=== PATIENT | female | born 1965 | race Caucasian/White ===

== ENCOUNTER 2016-07-13 23:07 | Emergency (ER) | payer OTHER ==
[~2016-07-13] VITALS: Ht 167.6 cm; Wt 65.8 kg
--- NOTE | 2016-07-13 23:15 | NUR ---
To bed 6 a 51 yo female bibra with c/o right flank pain, constant sharp pain. Patient is aaox4, ambulatory with steady gait, reports she has history of kidney stones. Afebrile. Gowned. Initiated comfort measures. Dr Allen at bedside for eval.
--- NOTE | 2016-07-13 23:41 | NUR ---
xr at bedside.
[2016-07-13 23:48] LABS: APPEARANCE,URINE CLEAR (CLEAR); BILIRUBIN,URINE NEGATIVE (NEGATIVE); BLOOD, URINE 1+ Ery/uL (NEGATIVE); COLOR,URINE YELLOW (YELLOW); KETONES,URINE NEGATIVE (NEGATIVE); LEUKOCYTE ESTERASE ,URINE NEGATIVE (NEGATIVE); NITRITE, URINE NEGATIVE (NEGATIVE); PROTEIN,URINE TRACE mg/dl (NEGATIVE); UGLUCOSE NEGATIVE (NEGATIVE); UROBILINOGEN,URINE 0.2 EU/dL (0.2)
[2016-07-14 00:02] LABS: ADD URINE CULTURE NO; BACTERIA,URINE Few /HPF (None Seen); WBC,URINE 0-2 /HPF (0-3)
[2016-07-14 00:03] LABS: SQUAMOUS EPITHELIAL CELL,UR Few /HPF (None Seen)
[2016-07-14] MEDS ORDERED: HYDROCODONE/APAP 10/325MG 1 EA TABLET ONE (00:15)
[2016-07-14] MEDS ORDERED: KETOROLAC TROMETHAMINE INJ 30 MG/ML VIAL ONE (00:15)
[2016-07-14] MEDS ORDERED: KETOROLAC TROMETHAMINE INJ 30 MG/ML VIAL IM ONE (00:30)
[2016-07-14] MEDS ORDERED: HYDROCODONE/APAP 10/325MG 1 EA TABLET PO ONE (00:30)
[2016-07-14] MEDS ORDERED: TAMSULOSIN 0.4 MG CAP.SR.24H PO ONE (01:00)
[2016-07-14] MEDS ORDERED: TAMSULOSIN 0.4 MG CAP.SR.24H ONE (01:02)
--- NOTE | 2016-07-14 01:45 | NUR ---
Endorsed care to lapd officers. Written and verbal after care instructions given. Patient verbalizes understanding of instruction. Patient is ambulatory with a steady gait, no futher complaints.
[2016-07-14 01:46] VITALS: BP 115/60
== END 2016-07-14 01:47 | disposition home or self-care (01) ==
LOC: ER 23:10
DX: N20.0 Calculus of kidney (principal); Z88.2 Allergy status to sulfonamides
CPT/HCPCS: 74000; 81001; 96372; 99285; A4606; J1885; Z7610; 81000-TC

== ENCOUNTER 2017-06-16 13:22 | Emergency (ER) | payer MEDICAID, OTHER ==
[~2017-06-16] VITALS: Ht 167.6 cm; Wt 65.8 kg
--- NOTE | 2017-06-16 13:32 | NUR ---
ARTUR FROM HOME DT VAGINAL BLEEDING X 5 DAYS. PER PATIENT SHE HAS BEEN CHANGING PADS Q2H- PT CO DIZZINESS. PATIENT IS AFEBRILE. PT WITH HX OF OVARIN CYST. VSS
[2017-06-16] MEDS ORDERED: KETOROLAC TROMETHAMINE INJ 30 MG/ML VIAL ONE (13:37)
[2017-06-16 13:46] LABS: BASOPHILS % (AUTO) 0.5 % (0.0-2.0); EOSINOPHILS % (AUTO) 1.9 % (0.0-6.0); HEMATOCRIT 41 % (33-45); HEMOGLOBIN 13.9 g/dL (11.5-14.8); LYMPHOCYTES # (AUTO) 1.1 /CMM (0.8-4.8); LYMPHOCYTES % (AUTO) 14.2 % (20.0-44.0); MEAN CORPUSCULAR HGB CONC 34 g/dl (31.0-36.0); MEAN CORPUSCULAR VOLUME 85 fL (82-100); MONOCYTES # (AUTO) 0.4 /CMM (0.1-1.30); MONOCYTES % (AUTO) 5.6 % (2.0-12.0); NEUTROPHILS # (AUTO) 6.3 /CMM (1.8-8.9); NEUTROPHILS % (AUTO) 77.8 % (43.0-81.0); PLATELET COUNT (AUTO) 285 /CMM (150-450); RDW COEFFICIENT OF VARIATION 13.4 (11.5-15.0)
[2017-06-16 13:55] LABS: CALCIUM, SERUM 8.8 mg/dL (8.5-10.1); CREATININE 0.9 mg/dL (0.6-1.3); POTASSIUM 3.9 mmol/L (3.5-5.1)
[2017-06-16] MEDS ORDERED: HYDROMORPHONE INJ 2 MG/ML DISP.SYRIN ONE (13:57)
[2017-06-16] MEDS ORDERED: ONDANSETRON HCL/PF 4 MG/2 ML VIAL ONE (13:57)
[2017-06-16] MEDS ORDERED: IV NS 0.9% 1,000 ML BAG IV ONE (14:00)
[2017-06-16] MEDS ORDERED: HYDROMORPHONE 1 MG/1 ML DISP.SYRIN IV ONE (14:00)
[2017-06-16] MEDS ORDERED: KETOROLAC TROMETHAMINE INJ 30 MG/ML VIAL IV ONE (14:00)
[2017-06-16] MEDS ORDERED: ONDANSETRON HCL/PF 4 MG/2 ML VIAL IV ONE (14:00)
[2017-06-16 14:14] LABS: APPEARANCE,URINE Turbid (CLEAR); BILIRUBIN,URINE MODERATE (NEGATIVE); BLOOD, URINE Large Ery/uL (NEGATIVE); COLOR,URINE Red (YELLOW); KETONES,URINE 15 (NEGATIVE); LEUKOCYTE ESTERASE ,URINE Large (NEGATIVE); NITRITE, URINE Positive (NEGATIVE); PH,URINE 6.5 (5.0-8.0); PROTEIN,URINE >=300 mg/dl (NEGATIVE); UGLUCOSE Negative (NEGATIVE)
[2017-06-16 14:20] LABS: RBC,URINE TOO NUMEROUS TO COUN /HPF (0-2)
[2017-06-16 14:23] LABS: BACTERIA,URINE None seen /HPF (None Seen); SQUAMOUS EPITHELIAL CELL,UR Few /HPF (None Seen)
[2017-06-16] MEDS ORDERED: medroxyPROGESTERone ACET 5 MG TABLET PO ONE (15:00)
[2017-06-16 15:07] VITALS: BP 138/80
== END 2017-06-16 15:09 | disposition home or self-care (01) ==
LOC: ER 13:24
DX: N93.8 Other specified abnormal uterine and vaginal bleeding (principal); N39.0 Urinary tract infection, site not specified; N95.0 Postmenopausal bleeding; Z87.442 Personal history of urinary calculi; Z88.2 Allergy status to sulfonamides
CPT/HCPCS: 36415; 80048; 81001; 84703; 85025; 87086; 96361; 96374 ×2; 96375; 99284; A4606; A6403; J1170; J1885; J2405; J7030; Z7610; 81000-TC

== ENCOUNTER 2017-07-05 02:27 | Emergency (ER) | payer MEDICAID ==
[~2017-07-05] VITALS: Ht 167.6 cm; Wt 68.0 kg
--- NOTE | 2017-07-05 02:40 | NUR ---
52 YO FEMALE BB RA FROM HOME. PATIENT IS ALERT AND ORIENTED X 3, C/O LEFT FLANK/ ABD PAIN. PATIENT ASSISTED TO ER BED, SKIN WARM AND DRY, RESP EVEN AND UNLABORED. AWAITING ORDERS FROM PROVIDER, WILL CONTINUE TO MONITOR
[2017-07-05] MEDS ORDERED: ONDANSETRON HCL/PF 4 MG/2 ML VIAL ONE (02:48)
[2017-07-05] MEDS ORDERED: MORPHINE SULFATE INJ 4 MG/ML DISP.SYRIN ONE (02:48)
--- NOTE | 2017-07-05 02:54 | NUR ---
PATIENT TRANSPORTED TO CT VIA GURNEY BY RADIOLOGY TEAM
[2017-07-05] MEDS ORDERED: MORPHINE SULFATE INJ 2 MG/ML DISP.SYRIN IV ONE (03:00)
[2017-07-05] MEDS ORDERED: IV NS 0.9% 1,000 ML BAG IV ONE (03:00)
[2017-07-05] MEDS ORDERED: ONDANSETRON HCL/PF 4 MG/2 ML VIAL IVP ONE (03:00)
[2017-07-05 03:34] LABS: BASOPHILS % (AUTO) 0.1 % (0.0-2.0); EOSINOPHILS % (AUTO) 1.4 % (0.0-6.0); HEMATOCRIT 36 % (33-45); HEMOGLOBIN 12.3 g/dL (11.5-14.8); LYMPHOCYTES # (AUTO) 0.7 /CMM (0.8-4.8); LYMPHOCYTES % (AUTO) 7.1 % (20.0-44.0); MEAN CORPUSCULAR HGB CONC 34 g/dl (31.0-36.0); MEAN CORPUSCULAR VOLUME 86 fL (82-100); MONOCYTES # (AUTO) 0.8 /CMM (0.1-1.30); MONOCYTES % (AUTO) 8.4 % (2.0-12.0); NEUTROPHILS # (AUTO) 7.9 /CMM (1.8-8.9); PLATELET COUNT (AUTO) 211 /CMM (150-450); RDW COEFFICIENT OF VARIATION 13.8 (11.5-15.0); RED BLOOD CELL COUNT(AUTO) 4.17 MIL/uL (4.0-5.2); WHITE BLOOD COUNT (AUTO) 9.6 K/uL (4.3-11.0)
[2017-07-05 03:42] LABS: BILIRUBIN,URINE NEGATIVE (NEGATIVE); BLOOD, URINE NEGATIVE Ery/uL (NEGATIVE); COLOR,URINE YELLOW (YELLOW); KETONES,URINE 1+ (NEGATIVE); LEUKOCYTE ESTERASE ,URINE NEGATIVE (NEGATIVE); NITRITE, URINE NEGATIVE (NEGATIVE); PH,URINE 6.5 (5.0-8.0); PROTEIN,URINE NEGATIVE (NEGATIVE); UGLUCOSE NEGATIVE (NEGATIVE); UROBILINOGEN,URINE 0.2 EU/dL (0.2)
[2017-07-05 03:45] LABS: APPEARANCE,URINE CLEAR (CLEAR); BACTERIA,URINE Few /HPF (None Seen); RBC,URINE 0-2 /HPF (0-2); SQUAMOUS EPITHELIAL CELL,UR Moderate /HPF (None Seen); WBC,URINE NONE SEEN /HPF (0-3)
[2017-07-05 03:46] LABS: CALCIUM, SERUM 8.8 mg/dL (8.5-10.1); CREATININE 1.4 mg/dL (0.6-1.3); POTASSIUM 3.9 mmol/L (3.5-5.1)
[2017-07-05 03:57] LABS: ALBUMIN 3.4 g/dL (3.4-5.0); BILIRUBIN,DIRECT 0.1 mg/dL (0.0-0.2); BILIRUBIN,TOTAL 0.6 mg/dL (0.2-1.0); TOTAL PROTEIN, SERUM 6.9 g/dL (6.4-8.2)
[2017-07-05] MEDS ORDERED: KETOROLAC TROMETHAMINE INJ 30 MG/ML VIAL ONE (04:18)
[2017-07-05] MEDS ORDERED: KETOROLAC TROMETHAMINE INJ 30 MG/ML VIAL IV ONE (04:30)
[2017-07-05 04:47] VITALS: BP 122/79
--- NOTE | 2017-07-05 04:47 | NUR ---
Patient discharged to home in stable condition. Written and verbal after care instructions given. Patient verbalizes understanding of instruction.IV removed. Catheter intact and site benign. Pressure and 4x4 applied to site. No bleeding noted. PT ambulatory with a steady gait VITAL SIGNS WITHIN NORMAL LIMITS.
== END 2017-07-05 04:48 | disposition home or self-care (01) ==
LOC: ER 02:33
DX: N20.0 Calculus of kidney (principal); N83.209 Unspecified ovarian cyst, unspecified side; Z88.2 Allergy status to sulfonamides
CPT/HCPCS: 36415; 80048-TC; 80076-TC; 81000-TC; 83690-TC; 85025-TC; A4606; J1885; J2270; J2405; Z7610

== ENCOUNTER 2017-07-19 07:22 | Emergency (ER) | payer MEDICAID ==
[~2017-07-19] VITALS: Ht 167.6 cm; Wt 68.0 kg
--- NOTE | 2017-07-19 07:25 | NUR ---
bibra 89 c/o LLQ abdominal pain radiates to left lower back. hx of kidney. Stating 10/10 pain, crying and restless. a/ox 4. breathing even and unlabored. no sob, vitals stable. safety and comfort measures in place. awaiting md orders.
[2017-07-19] MEDS ORDERED: MORPHINE SULFATE INJ 2 MG/ML DISP.SYRIN IV ONE (07:30)
[2017-07-19] MEDS ORDERED: ONDANSETRON HCL/PF 4 MG/2 ML VIAL IVP ONE (07:30)
[2017-07-19] MEDS ORDERED: IV NS 0.9% 1,000 ML BAG IV ONE (07:30)
--- NOTE | 2017-07-19 07:40 | NUR ---
new iv started on lac, 18g. blood drawn and sent to lab.
--- NOTE | 2017-07-19 07:41 | NUR ---
urine obtained and sent to lab.
[2017-07-19] MEDS ORDERED: MORPHINE SULFATE INJ 4 MG/ML DISP.SYRIN ONE (07:45)
[2017-07-19] MEDS ORDERED: ONDANSETRON HCL/PF 4 MG/2 ML VIAL ONE (07:45)
[2017-07-19 07:46] LABS: BASOPHILS # (AUTO) 0.1 /CMM (0.0-0.2); BASOPHILS % (AUTO) 0.8 % (0.0-2.0); EOSINOPHILS % (AUTO) 2.6 % (0.0-6.0); HEMATOCRIT 39 % (33-45); HEMOGLOBIN 13.4 g/dL (11.5-14.8); LYMPHOCYTES # (AUTO) 1.8 /CMM (0.8-4.8); LYMPHOCYTES % (AUTO) 23.2 % (20.0-44.0); MEAN CORPUSCULAR HGB CONC 34 g/dl (31.0-36.0); MEAN CORPUSCULAR VOLUME 85 fL (82-100); MONOCYTES # (AUTO) 0.7 /CMM (0.1-1.30); MONOCYTES % (AUTO) 8.5 % (2.0-12.0); NEUTROPHILS # (AUTO) 5.1 /CMM (1.8-8.9); NEUTROPHILS % (AUTO) 64.9 % (43.0-81.0); PLATELET COUNT (AUTO) 374 /CMM (150-450); RDW COEFFICIENT OF VARIATION 13.6 (11.5-15.0); WHITE BLOOD COUNT (AUTO) 7.9 K/uL (4.3-11.0)
[2017-07-19 07:49] LABS: APPEARANCE,URINE CLOUDY (CLEAR); BILIRUBIN,URINE NEGATIVE (NEGATIVE); BLOOD, URINE 3+ Ery/uL (NEGATIVE); COLOR,URINE YELLOW (YELLOW); KETONES,URINE NEGATIVE (NEGATIVE); LEUKOCYTE ESTERASE ,URINE NEGATIVE (NEGATIVE); NITRITE, URINE NEGATIVE (NEGATIVE); PH,URINE 7.5 (5.0-8.0); PROTEIN,URINE TRACE mg/dl (NEGATIVE); UGLUCOSE NEGATIVE (NEGATIVE); UROBILINOGEN,URINE 0.2 EU/dL (0.2)
[2017-07-19 07:53] LABS: BACTERIA,URINE Rare /HPF (None Seen); RBC,URINE TOO NUMEROUS TO COUN /HPF (0-2); SQUAMOUS EPITHELIAL CELL,UR Few /HPF (None Seen); WBC,URINE 0-2 /HPF (0-3)
[2017-07-19] MEDS ORDERED: HYDROMORPHONE 1 MG/1 ML DISP.SYRIN IV ONE (08:00)
[2017-07-19 08:02] LABS: CALCIUM, SERUM 8.7 mg/dL (8.5-10.1); CREATININE 0.9 mg/dL (0.6-1.3); POTASSIUM 4.1 mmol/L (3.5-5.1)
[2017-07-19 08:04] LABS: ALBUMIN 3.9 g/dL (3.4-5.0); BILIRUBIN,DIRECT 0.1 mg/dL (0.0-0.2); BILIRUBIN,TOTAL 0.3 mg/dL (0.2-1.0); TOTAL PROTEIN, SERUM 7.4 g/dL (6.4-8.2)
[2017-07-19] MEDS ORDERED: HYDROMORPHONE INJ 0.5 MG/0.5 ML SYRINGE ONE (08:06)
[2017-07-19] MEDS ORDERED: TAMSULOSIN 0.4 MG CAP.SR.24H ONE (09:26)
[2017-07-19] MEDS ORDERED: TAMSULOSIN 0.4 MG CAP.SR.24H PO ONE (09:30)
--- NOTE | 2017-07-19 09:53 | NUR ---
IV removed. Catheter intact and site benign. Pressure and 4x4 applied to site. No bleeding noted. Patient discharged to home in stable condition. Written and verbal after care instructions given. Patient verbalizes understanding of instruction.
[2017-07-19 09:55] VITALS: BP 135/66
== END 2017-07-19 09:55 | disposition home or self-care (01) ==
LOC: ER 07:24
DX: N20.0 Calculus of kidney (principal); N23 Unspecified renal colic; N83.202 Unspecified ovarian cyst, left side; Z88.2 Allergy status to sulfonamides
CPT/HCPCS: 36415; 80048-TC; 80076-TC; 81000-TC; 83690-TC; 85025-TC; A4606; J2270; J2405; J7030; Z7610

== ENCOUNTER 2017-07-22 15:17 | Emergency (ER) | payer MEDICAID ==
[~2017-07-22] VITALS: Ht 167.6 cm; Wt 68.0 kg
--- NOTE | 2017-07-22 15:54 | NUR ---
A/OX4. NAD C/O L FLANK PAIN HX OF KIDNEY STONE. WILL CONT TO MONITOR
[2017-07-22 16:15] LABS: BASOPHILS # (AUTO) 0.1 /CMM (0.0-0.2); EOSINOPHILS % (AUTO) 3.9 % (0.0-6.0); HEMATOCRIT 37 % (33-45); HEMOGLOBIN 13.1 g/dL (11.5-14.8); LYMPHOCYTES # (AUTO) 1.6 /CMM (0.8-4.8); LYMPHOCYTES % (AUTO) 25.9 % (20.0-44.0); MEAN CORPUSCULAR HGB CONC 35 g/dl (31.0-36.0); MEAN CORPUSCULAR VOLUME 85 fL (82-100); MONOCYTES # (AUTO) 0.3 /CMM (0.1-1.30); NEUTROPHILS # (AUTO) 3.9 /CMM (1.8-8.9); NEUTROPHILS % (AUTO) 64.2 % (43.0-81.0); PLATELET COUNT (AUTO) 342 /CMM (150-450); RDW COEFFICIENT OF VARIATION 12.6 (11.5-15.0); RED BLOOD CELL COUNT(AUTO) 4.41 MIL/uL (4.0-5.2); WHITE BLOOD COUNT (AUTO) 6.1 K/uL (4.3-11.0)
[2017-07-22] MEDS ORDERED: HYDROMORPHONE INJ 0.5 MG/0.5 ML SYRINGE ONE (16:23)
[2017-07-22] MEDS ORDERED: ONDANSETRON HCL/PF 4 MG/2 ML VIAL ONE (16:23)
[2017-07-22] MEDS ORDERED: KETOROLAC TROMETHAMINE 15 MG/ML VIAL ONE (16:23)
[2017-07-22] MEDS: ONDANSETRON HCL/PF 4 MG/2 ML VIAL IVP ONE (16:25)
[2017-07-22] MEDS: IV NS 0.9% 1,000 ML BAG IV ONE (16:25)
[2017-07-22] MEDS: KETOROLAC TROMETHAMINE INJ 30 MG/ML VIAL IV ONE (16:25)
[2017-07-22] MEDS: HYDROMORPHONE INJ 2 MG/ML DISP.SYRIN IV ONE (16:25)
[2017-07-22 16:27] LABS: CALCIUM, SERUM 8.3 mg/dL (8.5-10.1); CREATININE 0.9 mg/dL (0.6-1.3); POTASSIUM 3.8 mmol/L (3.5-5.1)
[2017-07-22 17:10] LABS: APPEARANCE,URINE Clear (CLEAR); BILIRUBIN,URINE Negative (NEGATIVE); BLOOD, URINE Trace-intact Ery/uL (NEGATIVE); COLOR,URINE Yellow (YELLOW); KETONES,URINE Negative (NEGATIVE); LEUKOCYTE ESTERASE ,URINE Negative (NEGATIVE); NITRITE, URINE Negative (NEGATIVE); PH,URINE 6.5 (5.0-8.0); PROTEIN,URINE Negative (NEGATIVE); UGLUCOSE Negative (NEGATIVE); UROBILINOGEN,URINE 0.2 EU/dL (0.2)
[2017-07-22 17:27] LABS: BACTERIA,URINE Rare /HPF (None Seen); RBC,URINE 0-2 /HPF (0-2); SQUAMOUS EPITHELIAL CELL,UR Few /HPF (None Seen); WBC,URINE 0-2 /HPF (0-3)
[2017-07-22] MEDS ORDERED: HYDROMORPHONE INJ 2 MG/ML DISP.SYRIN ONE (17:46)
[2017-07-22] MEDS: TAMSULOSIN 0.4 MG CAP.SR.24H PO ONE (17:47)
[2017-07-22] MEDS ORDERED: TAMSULOSIN 0.4 MG CAP.SR.24H ONE (17:47)
[2017-07-22] MEDS: HYDROMORPHONE 1 MG/1 ML DISP.SYRIN IV ONE (17:48)
--- NOTE | 2017-07-22 18:18 | NUR ---
CALLED DR OLVERA, WAS PAGED.
--- NOTE | 2017-07-22 19:12 | NUR ---
IV removed. Catheter intact and site benign. Pressure and 4x4 applied to site. No bleeding noted.Patient discharged to home in stable condition. Written and verbal after care instructions given. Patient verbalizes understanding of instruction.
[2017-07-22 19:15] VITALS: BP 138/85
== END 2017-07-22 19:15 | disposition home or self-care (01) ==
LOC: ER 15:21
DX: N23 Unspecified renal colic (principal); N13.39 Other hydronephrosis; Z87.442 Personal history of urinary calculi; N83.209 Unspecified ovarian cyst, unspecified side; Z88.2 Allergy status to sulfonamides
CPT/HCPCS: 36415; 76770-TC; 80048-TC; 81000-TC; 85025-TC; 87086-TC; A4606; J1170; J1885; J2405; Z7610

== ENCOUNTER 2017-08-09 19:54 | Emergency (ER) | payer MEDICAID ==
[~2017-08-09] VITALS: Ht 170.2 cm; Wt 68.0 kg
--- NOTE | 2017-08-09 20:26 | NUR ---
PT AMBULATORY TO ER BED 10. BIB SELF C/O R FLANK PAIN WITH STRONG ODOR AND URINARY LEAKING X 1 MONTH. PT PLACED IN GOWN AND ON CONTACT LENS TECHNICIAN. VSS/RESP EVEN UNLABORED/NAD NOTED/SKIN WARM AND DRY/DENIES N-V-D/AOX4. AWAITING MD HAYWARD.
--- NOTE | 2017-08-09 20:28 | NUR ---
URINE SPECIMEN OBTAINED AND SENT TO THE LAB.
--- NOTE | 2017-08-09 20:28 | NUR ---
AT BEDSIDE FOR EVAL.
[2017-08-09] MEDS ORDERED: ONDANSETRON HCL/PF 4 MG/2 ML VIAL IVP ONE (20:30)
[2017-08-09] MEDS ORDERED: HYDROMORPHONE INJ 2 MG/ML DISP.SYRIN IV ONE ×2 (20:30→22:00)
[2017-08-09] MEDS ORDERED: IV NS 0.9% 1,000 ML BAG IV ONE (20:30)
[2017-08-09] MEDS ORDERED: ONDANSETRON HCL/PF 4 MG/2 ML VIAL ONE (20:39)
[2017-08-09] MEDS ORDERED: HYDROMORPHONE INJ 2 MG/ML DISP.SYRIN ONE ×2 (20:39→21:31)
--- NOTE | 2017-08-09 20:40 | NUR ---
20G IV TO R AC X 1 ATTEMPT USING ASEPTIC TECH, BLOOD HANDED OVER TO THE LAB AT THE BEDSIDE. IV FLUSHES EASILY WITH NS, NO S/S INFILTRATION NOTED AT THIS TIME.
[2017-08-09 20:43] LABS: BASOPHILS # (AUTO) 0.1 /CMM (0.0-0.2); BASOPHILS % (AUTO) 0.7 % (0.0-2.0); EOSINOPHILS % (AUTO) 3.4 % (0.0-6.0); HEMATOCRIT 40 % (33-45); HEMOGLOBIN 13.7 g/dL (11.5-14.8); LYMPHOCYTES # (AUTO) 1.9 /CMM (0.8-4.8); LYMPHOCYTES % (AUTO) 23.4 % (20.0-44.0); MEAN CORPUSCULAR HGB CONC 35 g/dl (31.0-36.0); MEAN CORPUSCULAR VOLUME 86 fL (82-100); MONOCYTES # (AUTO) 0.4 /CMM (0.1-1.30); MONOCYTES % (AUTO) 5.4 % (2.0-12.0); NEUTROPHILS # (AUTO) 5.4 /CMM (1.8-8.9); NEUTROPHILS % (AUTO) 67.1 % (43.0-81.0); PLATELET COUNT (AUTO) 297 /CMM (150-450); RDW COEFFICIENT OF VARIATION 13.6 (11.5-15.0); WHITE BLOOD COUNT (AUTO) 8.1 K/uL (4.3-11.0)
[2017-08-09 20:44] LABS: APPEARANCE,URINE Clear (CLEAR); BILIRUBIN,URINE Negative (NEGATIVE); BLOOD, URINE Trace-intact Ery/uL (NEGATIVE); COLOR,URINE Yellow (YELLOW); KETONES,URINE Trace (NEGATIVE); LEUKOCYTE ESTERASE ,URINE Negative (NEGATIVE); NITRITE, URINE Negative (NEGATIVE); PROTEIN,URINE Negative (NEGATIVE); UGLUCOSE Negative (NEGATIVE); UROBILINOGEN,URINE 0.2 EU/dL (0.2)
--- NOTE | 2017-08-09 20:45 | NUR ---
MEDICATED PT ORDERED
[2017-08-09 20:53] LABS: CALCIUM, SERUM 8.5 mg/dL (8.5-10.1); CREATININE 0.7 mg/dL (0.6-1.3); POTASSIUM 3.7 mmol/L (3.5-5.1)
[2017-08-09 20:56] LABS: BACTERIA,URINE Rare /HPF (None Seen); MUCUS,URINE Moderate /LPF (None Seen); RBC,URINE 0-2 /HPF (0-2); SQUAMOUS EPITHELIAL CELL,UR Few /HPF (None Seen); WBC,URINE NONE SEEN /HPF (0-3)
[2017-08-09 20:59] LABS: ALBUMIN 3.8 g/dL (3.4-5.0); BILIRUBIN,DIRECT 0.1 mg/dL (0.0-0.2); BILIRUBIN,TOTAL 0.2 mg/dL (0.2-1.0)
[2017-08-09 21:03] LABS: INR 0.9 (0.85-1.15)
[2017-08-10] MEDS ORDERED: LACOSAMIDE 50 MG TABLET PO STA (00:03)
[2017-08-10] MEDS ORDERED: HYDROMORPHONE INJ 0.5 MG/0.5 ML SYRINGE ONE (00:15)
[2017-08-10] MEDS ORDERED: HYDROMORPHONE 1 MG/1 ML DISP.SYRIN IV ONE (00:30)
--- NOTE | 2017-08-10 00:30 | NUR ---
IV removed. Catheter intact and site benign. Pressure and 4x4 applied to site. No bleeding noted.Patient discharged to home in stable condition. Written and verbal after care instructions given. Patient verbalizes understanding of instruction AND RX. PT AMBULATED OUT WITH A STEADY GAIT. PT REC'D A STRAINER AND CUP. PT WAS TOLD TO F/U WITH NEUROLOGIST.
[2017-08-10] MEDS ORDERED: HYDROMORPHONE INJ 2 MG/ML DISP.SYRIN ONE (00:39)
[2017-08-10 00:51] VITALS: BP 138/89
== END 2017-08-10 00:53 | disposition home or self-care (01) ==
LOC: ER 19:56
DX: N20.1 Calculus of ureter (principal); N83.209 Unspecified ovarian cyst, unspecified side; Z88.2 Allergy status to sulfonamides; Z87.442 Personal history of urinary calculi
CPT/HCPCS: 36415; 80048-TC; 80076-TC; 81000-TC; 85025-TC; 85730-TC; 87086-TC; A4606; J1170; J2405; J7030; Z7610

== ENCOUNTER 2017-12-11 20:31 | Emergency (ER) | payer MEDICAID ==
[~2017-12-11] VITALS: Ht 170.2 cm; Wt 63.5 kg
[2017-12-11 21:05] VITALS: BP 116/83
[2017-12-11] MEDS ORDERED: oxyCODONE/APAP (5/325 MG) 1 UDTAB TABLET ONE (22:43)
[2017-12-11] MEDS ORDERED: oxyCODONE/APAP (5/325 MG) 1 UDTAB TABLET PO ONE (23:00)
== END 2017-12-11 22:59 | disposition home or self-care (01) ==
LOC: ER 20:35
DX: S63.697A Other sprain of left little finger, initial encounter (principal); Z87.442 Personal history of urinary calculi; Z87.42 Personal history of other diseases of the female genital tract; Z88.2 Allergy status to sulfonamides; W18.39XA Other fall on same level, initial encounter; Y93.89 Activity, other specified; Y92.89 Other specified places as the place of occurrence of the external cause; Y99.8 Other external cause status
CPT/HCPCS: 29130; 73130; 99284; A4606; Z7610

== ENCOUNTER 2018-02-25 18:25 | Emergency (ER) | payer MEDICAID ==
[~2018-02-25] VITALS: Ht 165.1 cm; Wt 67.6 kg
--- NOTE | 2018-02-25 18:58 | NUR ---
PT BIB SELF. COMP OF SUFFERING GLF. NO KO. LANDED ON R HAND. NO SOB NOTED. NO ACUTE DISTRESS AT THIS TIME. AWAITING MD HAYWARD.
[2018-02-25] MEDS ORDERED: HYDROCODONE/APAP 5/325MG 1 EACH TABLET PO ONE (19:00)
[2018-02-25] MEDS ORDERED: KETOROLAC TROMETHAMINE INJ 60 MG/2 ML VIAL IM ONE (19:00)
[2018-02-25] MEDS ORDERED: KETOROLAC TROMETHAMINE 15 MG/ML VIAL ONE (19:15)
[2018-02-25] MEDS ORDERED: HYDROCODONE/APAP 5/325MG 1 EACH TABLET ONE (19:15)
[2018-02-25 20:50] VITALS: BP 137/76
== END 2018-02-25 20:50 | disposition home or self-care (01) ==
LOC: ER 18:26
DX: S60.221A Contusion of right hand, initial encounter (principal); S50.01XA Contusion of right elbow, initial encounter; Z87.442 Personal history of urinary calculi; Z88.2 Allergy status to sulfonamides; W18.39XA Other fall on same level, initial encounter; Y93.89 Activity, other specified; Y92.89 Other specified places as the place of occurrence of the external cause; Y99.8 Other external cause status
CPT/HCPCS: 29125; 73080; 73110; 96372; 99283; J1885; Z7610; A4606

== ENCOUNTER 2018-04-02 23:28 | Emergency (ER) | payer MEDICAID ==
[~2018-04-02] VITALS: Ht 165.1 cm; Wt 68.0 kg
--- NOTE | 2018-04-03 00:05 | NUR ---
PT BIBSELF FROM HOME C/O FLU LIKE SYMPTOMS X1 MONTH. +COUGH, +L EARACHE +BODY ACHE, -FEVER. PT ON MONITOR IN 11. RESP EVEN AND UNLABORED. NAD NOTED. WILL CONTINUE TO MONITOR.
[2018-04-03 00:15] VITALS: BP 124/89
[2018-04-03 00:46] LABS: BASOPHILS # (AUTO) 0.1 /CMM (0.0-0.2); BASOPHILS % (AUTO) 1.3 % (0.0-2.0); EOSINOPHILS % (AUTO) 4.5 % (0.0-6.0); HEMATOCRIT 39 % (33-45); HEMOGLOBIN 13.2 g/dL (11.5-14.8); LYMPHOCYTES # (AUTO) 1.5 /CMM (0.8-4.8); LYMPHOCYTES % (AUTO) 28.4 % (20.0-44.0); MEAN CORPUSCULAR HGB CONC 34 g/dl (31.0-36.0); MEAN CORPUSCULAR VOLUME 93 fL (82-100); MONOCYTES # (AUTO) 0.5 /CMM (0.1-1.30); MONOCYTES % (AUTO) 10.1 % (2.0-12.0); NEUTROPHILS % (AUTO) 55.7 % (43.0-81.0); PLATELET COUNT (AUTO) 294 /CMM (150-450); WHITE BLOOD COUNT (AUTO) 5.4 K/uL (4.3-11.0)
[2018-04-03 00:57] LABS: CALCIUM, SERUM 8.2 mg/dL (8.5-10.1); CARBON DIOXIDE 22 mmol/L (21-32); CHLORIDE 110 mmol/L (98-107); CREATININE 0.9 mg/dL (0.6-1.3); GLUCOSE 116 mg/dL (74-106); POTASSIUM 3.7 mmol/L (3.5-5.1); SODIUM SERUM 142 mmol/L (136-145); UREA NITROGEN, BLOOD 16 mg/dL (7-18)
[2018-04-03 01:09] LABS: B-TYPE NATRIURETIC PEPTIDE 218 PG/ML (0-125)
--- NOTE | 2018-04-03 01:37 | NUR ---
Patient is resting comfortably in bed with FAMILY AT BEDSIDE. VSS. WILL CONTINUE TO MONITOR.
--- NOTE | 2018-04-03 02:26 | NUR ---
Patient discharged to home in stable condition. Written and verbal after care instructions given. Patient verbalizes understanding of instruction.
== END 2018-04-03 02:37 | disposition home or self-care (01) ==
LOC: ER 23:33
DX: R05 Cough (principal); R09.81 Nasal congestion; H92.02 Otalgia, left ear; R94.31 Abnormal electrocardiogram [ECG] [EKG]; Z88.2 Allergy status to sulfonamides; Z87.442 Personal history of urinary calculi
CPT/HCPCS: 36415; 71046; 80048; 83880; 84443; 84484; 85025; 85378; 93005; 99284; A4606 ×2; Z7610 ×2

== ENCOUNTER 2018-08-26 19:03 | Inpatient (IN) | payer MEDICAID ==
[~2018-08-26] VITALS: Ht 167.6 cm; Wt 64.2 kg
--- NOTE | 2018-08-26 19:20 | NUR ---
TO BED 2 BIB EMS C/O HEADACHE, UNRELIEVED WITH OTC MEDICATION X3 DAYS. PT AAOX4 NO ACUTE DISTRESS NOTED, RESP EVEN AND UNLABORED. PUPILS PERRLA, PT ABLE TO MOVE ALL EXTREMITIES WELL WITH BILATERAL EQUAL IT APPLICATION SUPPORT ANALYST. PLACE PT ON CARDIAC MONITORING, CONTINUOUS POX. PENDING ER MD HAYWARD. WILL CONTINUE TO MONITOR PT CLOSELY.
--- NOTE | 2018-08-26 19:21 | NUR ---
JOSIAH SLIVER CUTTER AT BEDSIDE TO EVAL PT WITH ORDERS RECEIVED. WILL CARRY OUT ORDERS.
[2018-08-26] MEDS ORDERED: ONDANSETRON HCL/PF 4 MG/2 ML VIAL ONE (19:29)
[2018-08-26] MEDS ORDERED: METOCLOPRAMIDE HCL 10 MG/2 ML VIAL ONE (19:29)
[2018-08-26] MEDS ORDERED: HYDROMORPHONE 1 MG/1 ML DISP.SYRIN ONE ×2 (19:29→22:16)
[2018-08-26] MEDS ORDERED: diphenhydrAMINE HCL 50 MG/ML VIAL ONE (19:29)
[2018-08-26] MEDS ORDERED: METOCLOPRAMIDE HCL 10 MG/2 ML VIAL IV ONE (19:30)
[2018-08-26] MEDS ORDERED: diphenhydrAMINE HCL 50 MG/ML VIAL IV ONE (19:30)
[2018-08-26] MEDS ORDERED: IV NS 0.9% 250 ML BAG IV ONE (19:30)
[2018-08-26] MEDS ORDERED: ONDANSETRON HCL/PF 4 MG/2 ML VIAL IVP ONE (19:30)
[2018-08-26] MEDS ORDERED: HYDROMORPHONE INJ 2 MG/ML DISP.SYRIN IV ONE (19:30)
[2018-08-26] MEDS ORDERED: IV NS 0.9% 1,000 ML BAG IV ONE (19:30)
[2018-08-26 19:32] LABS: BASOPHILS # (AUTO) 0.1 /CMM (0.0-0.2); BASOPHILS % (AUTO) 1.4 % (0.0-2.0); HEMATOCRIT 46 % (33-45); HEMOGLOBIN 15.7 g/dL (11.5-14.8); LYMPHOCYTES # (AUTO) 1.9 /CMM (0.8-4.8); LYMPHOCYTES % (AUTO) 35.9 % (20.0-44.0); MEAN CORPUSCULAR HGB CONC 34 g/dl (31.0-36.0); MEAN CORPUSCULAR VOLUME 88 fL (82-100); MONOCYTES # (AUTO) 0.4 /CMM (0.1-1.30); MONOCYTES % (AUTO) 7.2 % (2.0-12.0); NEUTROPHILS # (AUTO) 2.8 /CMM (1.8-8.9); NEUTROPHILS % (AUTO) 52.5 % (43.0-81.0); PLATELET COUNT (AUTO) 291 /CMM (150-450); RED BLOOD CELL COUNT(AUTO) 5.29 MIL/uL (4.0-5.2); WHITE BLOOD COUNT (AUTO) 5.3 K/uL (4.3-11.0)
--- NOTE | 2018-08-26 19:34 | NUR ---
RN AT BEDSIDE TO MEDICATE PT.
--- NOTE | 2018-08-26 19:41 | NUR ---
PT TRANSPORTED TO RADIOLOGY FOR CTA BRAIN AND CAROTIDS.
[2018-08-26 19:44] LABS: CALCIUM, SERUM 8.7 mg/dL (8.5-10.1); CARBON DIOXIDE 26 mmol/L (21-32); CHLORIDE 106 mmol/L (98-107); CREATININE 0.8 mg/dL (0.6-1.3); GLUCOSE 133 mg/dL (74-106); POTASSIUM 4.1 mmol/L (3.5-5.1); SODIUM SERUM 143 mmol/L (136-145); UREA NITROGEN, BLOOD 16 mg/dL (7-18)
[2018-08-26 19:49] LABS: ALANINE AMINOTRANSFERASE 26 U/L (12-78); ALBUMIN 3.7 g/dL (3.4-5.0); ALKALINE PHOSPHATASE 83 U/L (46-116); ASPARTATE AMINOTRANSFERASE 14 U/L (15-37); BILIRUBIN,DIRECT 0.1 mg/dL (0.0-0.2); BILIRUBIN,TOTAL 0.2 mg/dL (0.2-1.0); TOTAL PROTEIN, SERUM 7.3 g/dL (6.4-8.2)
--- NOTE | 2018-08-26 19:56 | NUR ---
PT BACK FROM RADIOLOGY, AWAITING RESULT.
[2018-08-26] MEDS ORDERED: IOHEXOL-350 100 ML VIAL IV ONE (19:59)
[2018-08-26] MEDS ORDERED: CT SWABBABLE VALVE TRANS SET 1 EA INFUS.SET MC ONE (19:59)
[2018-08-26] MEDS ORDERED: IV NS 0.9% 250 ML IV ONE (19:59)
--- NOTE | 2018-08-26 20:58 | NUR ---
PT RESTING QUIETLY, NO ACUTE DISTRESS NOTED, RESP EVEN AND UNLABORED. CALL LIGHT WITHIN REACH. WILL CONTINUE TO MONITOR PT CLOSELY.
[2018-08-26] MEDS ORDERED: HYDROMORPHONE 1 MG/1 ML DISP.SYRIN IV ONE (22:30)
--- NOTE | 2018-08-27 00:30 | NUR ---
REPORT CALLED TO PRESCHOOL AIDEGLENN RIVERA. WILL TRANSPORT PT VIA ACLS PROTOCOL.
[2018-08-27] MEDS ORDERED: MAGNESIUM HYDROXIDE 30 ML UDC PO PRN (01:00)
[2018-08-27] MEDS ORDERED: TRAMADOL HCL 50 MG TABLET PO ONE (01:00)
[2018-08-27] MEDS ORDERED: MAG HYDROX/AL HYDROX/SIMETH 30 ML UDC PO PRN (01:00)
[2018-08-27] MEDS ORDERED: METOCLOPRAMIDE HCL 15 MG in IV NS 0.9% 50 ML IV PRN (01:00)
[2018-08-27] MEDS ORDERED: methylPREDNISolone SOD SUCC 40 MG/ML VIAL IV ONE (01:00)
[2018-08-27] MEDS ORDERED: KETOROLAC TROMETHAMINE 10 MG TABLET PO PRN (01:00)
[2018-08-27] MEDS ORDERED: ACETAMINOPHEN 325 MG TABLET PO PRN (01:00)
[2018-08-27] MEDS ORDERED: SUMATRIPTAN SUCCINATE 25 MG TABLET PO ONE (01:00)
[2018-08-27] MEDS ORDERED: ONDANSETRON HCL/PF 4 MG/2 ML VIAL IVP PRN (01:00)
[2018-08-27] MEDS ORDERED: Z GUARD REMEDY 2 OZ OINT TP PRN (01:00)
[2018-08-27] MEDS ORDERED: TRAMADOL HCL 50 MG TABLET ONE (01:04)
[2018-08-27 01:10] VITALS: BP 127/89
--- NOTE | 2018-08-27 01:20 | NUR ---
RN NOTES RECEIVED PT. FROM ER WITH DX. OF INTRACTABLE HEADACHE, DENIES PAIN AT THIS TIME, ADMISSION INSTRUCTION WAS RENDERED, CALL LIGHT WITHIN REACH, [id number], CONTINUE TO MONITOR
[2018-08-27 01:30] VITALS: BP 127/89
[2018-08-27] MEDS: IV NS 0.9% 1,000 ML IV PRN ×2 (02:26→17:40)
[2018-08-27] MEDS ORDERED: SUMATRIPTAN SUCCINATE 25 MG TABLET ONE (02:31)
--- NOTE | 2018-08-27 04:10 | NUR ---
RN NOTES COMPLAINED OF FEELING NAUSEOUS- ZOFRAN 4MG IV GIVEN ORDERED, V/S STABLE
--- NOTE | 2018-08-27 06:37 | NUR ---
RN NOTES SLEEPING BUT AROUSABLE, MORNING CARE RENDERED, CALL LIGHT WITHIN REACH, [id number], PT. NEEDS ATTENDED
--- NOTE | 2018-08-27 07:25 | NUR ---
MS/RN OPENING NOTE THE PATIENT IS RECEIVED IN BED. AWAKE. ALERT AND ORIENTED X4. IN ROOM AIR AND DENIES SOB. RESPIRATION REGULAR AND UNLABORED. DENIES PAIN. THE PATIENT IS IN NO APPARENT DISTRESS. LAC G 18 PATENT AND NORMAL SALINE INFUSING AT 75ML/HR AND NO S/S INFILTRATION NOTED. BED LOW AND LOCKED. SIDE RAILS UP X3. CALL LIGHT WITHIN REACH. WILL CONTINUE TO MONITOR.
[2018-08-27 08:00] VITALS: BP 133/78
[2018-08-27] MEDS: PANTOPRAZOLE 40 MG TABLET.DR PO SCH (08:18)
[2018-08-27] MEDS ORDERED: SUMATRIPTAN SUCCINATE 100 MG TABLET PO ONE (08:30)
--- NOTE | 2018-08-27 09:19 | NUR ---
MS/RN NOTE RECEIVED ORDER FROM DR HUMPHREYS TO DISCONTINUE TORADOL 10 MG Q6HR PRN AND START NEW ORDER OF TORADOL 30 MG Q6HR PRN. THE ORDERS ARE READ BACK, VERIFIED. NOTED AND CARRIED OUT.
[2018-08-27] MEDS: KETOROLAC TROMETHAMINE 10 MG TABLET PO PRN ×2 (10:49→18:55)
--- NOTE | 2018-08-27 18:11 | NUR ---
MS/RN CLOSING NOTE THE PATIENT ALERT AND ORIENTED X4. RECEIVING OXYGEN AT 2L/MIN VIA NASAL CANULA AND SATURATION IS AT 97%. DENIES SOB. RESPIRATION REGULAR AND UNLABORED. DENIES PAIN AT THIS TIME. LAC G 18 PATENT AND NORMAL SALINE INFUSING AT 75ML/HR AND NO S/S INFILTRATION NOTED. BED LOW AND LOCKED. SIDE RAILS UP X3. CALL LIGHT WITHIN REACH. WILL ENDORSE TO ECOLOGICAL ECONOMIST.
--- NOTE | 2018-08-27 19:24 | NUR ---
MS RN RECEIVE PT IN BED A/O X 3, RESPIRATIONS EVEN AND UNLABORED,STABLE, NO S/S OF DISTRESS, SAFETY MEASURES IN PLACE. WILL CONTINUE TO MONITOR
--- NOTE | 2018-08-27 19:53 | NUR ---
ENDORSE TO NEXT SHIFT RN PLAN OF CARE
[2018-08-27 20:00] VITALS: BP 121/72
--- NOTE | 2018-08-27 20:00 | NUR ---
RN INITIAL NOTE RECEIVED PT IN BED. AWAKE. ALERT AND ORIENTED X4. ON ROOM AIR AND DENIES SOB. RESPIRATION REGULAR AND UNLABORED. DENIES PAIN. THE PATIENT IS IN NO APPARENT DISTRESS. LAC G 18 PATENT AND NORMAL SALINE INFUSING AT 75ML/HR AND NO S/S INFILTRATION NOTED. BED LOW AND LOCKED. SIDE RAILS UP X3. CALL LIGHT WITHIN REACH. WILL CONTINUE TO MONITOR.
[2018-08-27 22:00] VITALS: BP 121/72
[2018-08-28] MEDS: IV NS 0.9% 1,000 ML IV PRN (06:03)
--- NOTE | 2018-08-28 06:59 | NUR ---
RN CLOSING NOTE THE PATIENT ALERT AND ORIENTED X4. RECEIVING OXYGEN AT 2L/MIN VIA NASAL CANULA AND SATURATION IS AT 97%. DENIES SOB. RESPIRATION REGULAR AND UNLABORED. DENIES PAIN AT THIS TIME. LAC G 18 PATENT AND NORMAL SALINE INFUSING AT 75ML/HR AND NO S/S INFILTRATION NOTED. BED LOW AND LOCKED. SIDE RAILS UP X3. CALL LIGHT WITHIN REACH. WILL ENDORSE TO AM SHIFT.
--- NOTE | 2018-08-28 07:30 | NUR ---
MS/RN OPENING NOTE THE PATIENT IS ALERT AND ORIENTED X4. RECEVING OXYGEN AT 2L/MIN VIA NASAL CANULA AND DENIES SOB. RESPIRATION REGULAR AND UNLABORED. DENIES PAIN. THE PATIENT IS STABLE CONDITION. LAC G 18 PATENT AND NORMAL SALINE INFUSING AT 75ML/HR AND NO S/S INFILTRATION NOTED. BED LOW AND LOCKED. SIDE RAILS UP X3. CALL LIGHT WITHIN REACH. WILL CONTINUE TO MONITOR.
[2018-08-28] MEDS: PANTOPRAZOLE 40 MG TABLET.DR PO SCH (07:47)
[2018-08-28 07:48] LABS: BASOPHILS % (AUTO) 0.4 % (0.0-2.0); EOSINOPHILS % (AUTO) 0.1 % (0.0-6.0); HEMATOCRIT 41 % (33-45); HEMOGLOBIN 13.6 g/dL (11.5-14.8); LYMPHOCYTES # (AUTO) 1.4 /CMM (0.8-4.8); LYMPHOCYTES % (AUTO) 19.4 % (20.0-44.0); MEAN CORPUSCULAR HGB CONC 34 g/dl (31.0-36.0); MEAN CORPUSCULAR VOLUME 88 fL (82-100); MONOCYTES # (AUTO) 0.5 /CMM (0.1-1.30); MONOCYTES % (AUTO) 6.9 % (2.0-12.0); NEUTROPHILS # (AUTO) 5.3 /CMM (1.8-8.9); NEUTROPHILS % (AUTO) 73.2 % (43.0-81.0); PLATELET COUNT (AUTO) 226 /CMM (150-450); RED BLOOD CELL COUNT(AUTO) 4.61 MIL/uL (4.0-5.2); WHITE BLOOD COUNT (AUTO) 7.2 K/uL (4.3-11.0)
[2018-08-28 07:53] LABS: CALCIUM, SERUM 7.9 mg/dL (8.5-10.1); CREATININE 0.8 mg/dL (0.6-1.3); MAGNESIUM 1.9 mg/dL (1.8-2.4); PHOSPHORUS 2.4 mg/dL (2.5-4.9)
[2018-08-28 08:00] VITALS: BP 137/97
[2018-08-28 08:08] LABS: THYROID STIMULATING HORMONE 0.852 uIU/mL (0.358-3.74)
[2018-08-28] MEDS: KETOROLAC TROMETHAMINE 10 MG TABLET PO PRN (08:20)
--- NOTE | 2018-08-28 10:12 | NUR ---
MS/RN NOTE THE PATIENT IS SEEN BY DR WARD WITH NEW ORDERS OF IMITREX 100 MG PO X1, NAPROXEN 500 MG PO X1 AND MG 1 GM IV X1. ALL THE ORDERS ARE READ BACK, VERIFIED. NOTED AND CARRIED OUT. Addendum: 08/28/18 at 1017 by BUFFY MARQUEZ RN PATIENT`S MG= 1.[address] MONAE IS AWARE.
--- NOTE | 2018-08-28 10:27 | NUR ---
MS/RN NOTE DR MONAE CLEARED THE PATIENT FOR DISCHARGE.
[2018-08-28] MEDS ORDERED: K PHOS NEUTRAL 250 MG TABLET PO ONE (10:30)
[2018-08-28] MEDS ORDERED: Magnesium 1GM/D5W 100ML PREMIX PIGGYBACK IV ONE (10:30)
[2018-08-28] MEDS ORDERED: SUMATRIPTAN SUCCINATE 100 MG TABLET PO ONE (10:30)
[2018-08-28] MEDS ORDERED: NAPROXEN 500 MG TABLET PO ONE (10:30)
--- NOTE | 2018-08-28 13:00 | NUR ---
MS/RN CLOSING NOTE THE PATIENT IS GIVEN DISCHARGE EDUCATION AND SHE VERBALIZED UNDERSTANDING. THE PATIENT IS HANDED THE WRITTEN PRESCRIPTION AND THE COPIES ARE KEPT IN THE CHART. THE PATIENT IS ALERT AND ORIENTED X4. IN ROOM AIR AND SATURATION IS AT 98%. DENIES SOB. RESPIRATION REGULAR AND UNLABORED. DENIES PAIN. THE PATIENT IN NO APPARENT DISTRESS. THE PATIENT CALLED [employer] FOR FLOOR SANDING MACHINE OPERATOR. THE PATIENT LEFT THE HOSPITAL IN STABLE CONDITION.
== END 2018-08-28 13:00 | disposition home or self-care (01) | DRG 54 ==
LOC: ER 19:03 → MED 08-27 00:37
PROVIDERS: ADMIT Internal Medicine; ATTEND Internal Medicine
DX: G43.909 Migraine, unspecified, not intractable, without status migrainosus (principal); G47.00 Insomnia, unspecified; R73.9 Hyperglycemia, unspecified; M19.90 Unspecified osteoarthritis, unspecified site; Z88.2 Allergy status to sulfonamides
CPT/HCPCS: 36415; 70496-TC; 70498-TC; 71045-TC; 80048-TC; 80061-TC; 80076-TC; 83735-TC; 84100-TC; 84443-TC; 84484-TC; 85025-TC; 85652-TC; 85730-TC; 87081-TC; A4216; G0378; J1170; J1200; J2405; J2765; J2920; J3475; J7030; J7050; Q9967

== ENCOUNTER 2019-08-13 14:27 | Emergency (ER) | payer MEDICAID ==
[~2019-08-13] VITALS: Ht 167.6 cm; Wt 63.5 kg
--- NOTE | 2019-08-13 14:40 | NUR ---
BIB SELF C/O L HAND LACERATION "I FELL IN THE LADDER" PATIENT A/OX4, BREATHING EVEN AND UNLABORED, NO SOB NOTED. NEEDS ATTENDED, KEPT COMFORTABLE.
[2019-08-13] MEDS ORDERED: LIDOCAINE MPF 1%-EPI 1:200,000 30 ML VIAL IJ ONE (14:43)
[2019-08-13] MEDS ORDERED: TDAP [DIPH/PERTUSSIS/TET] 0.5 ML VIAL IM ONE ×2 (15:00→15:09)
--- NOTE | 2019-08-13 15:51 | NUR ---
WOUND COVERED WITH DRY DRESSING. Patient discharged to home in stable condition. Written and verbal after care instructions given. Patient verbalizes understanding of instruction.
[2019-08-13 15:52] VITALS: BP 125/78
== END 2019-08-13 15:52 | disposition home or self-care (01) ==
LOC: ER 14:28
DX: S61.412A Laceration without foreign body of left hand, initial encounter (principal); Z98.890 Other specified postprocedural states; Z88.2 Allergy status to sulfonamides; Z60.2 Problems related to living alone; W11.XXXA Fall on and from ladder, initial encounter; Y93.89 Activity, other specified; Y92.89 Other specified places as the place of occurrence of the external cause; Y99.8 Other external cause status
CPT/HCPCS: 12002; 90471; 90715; 99283; J3490

== ENCOUNTER 2019-11-08 06:12 | Emergency (ER) | payer MEDICAID ==
[~2019-11-08] VITALS: Ht 167.6 cm; Wt 63.5 kg
[2019-11-08] MEDS ORDERED: KETOROLAC TROMETHAMINE INJ 30 MG/ML VIAL ONE (06:21)
[2019-11-08] MEDS ORDERED: ONDANSETRON HCL/PF 4 MG/2 ML VIAL ONE (06:23)
--- NOTE | 2019-11-08 06:24 | NUR ---
PT BIBA C/O SUDDEN ONSET L SIDED ABD PAIN RADIATING ACROSS THE ABD SINCE 3 AM THIS MORNING. +N/V. PT AAOX4, VSS,R ESPIRATIONS EVEN AND UNLABORED ON RA W/ NAD NOTED. PT CONNECTED TO THE MONITOR AND POX.
--- NOTE | 2019-11-08 06:25 | NUR ---
PT MEDICATED ORDERED.
[2019-11-08] MEDS ORDERED: IV NS 0.9% 500 ML BAG IV ONE (06:30)
[2019-11-08] MEDS ORDERED: ONDANSETRON HCL/PF 4 MG/2 ML VIAL IVP ONE (06:30)
[2019-11-08] MEDS ORDERED: KETOROLAC TROMETHAMINE INJ 30 MG/ML VIAL IV ONE (06:30)
[2019-11-08] MEDS ORDERED: HYDROMORPHONE 1 MG/1 ML DISP.SYRIN ONE (06:42)
--- NOTE | 2019-11-08 06:47 | NUR ---
MD AT BEDSIDE SPEAKING TO PT. PT STATING SHE STILL HAS PAIN. ORDERED 0.5 DILAUDID IVP NOW. Addendum: 11/08/19 at 0649 by EVICTOR GLOVE FACTORY SEWER AT BEDSIDE
--- NOTE | 2019-11-08 06:58 | NUR ---
PT NOW DENIES PAIN. PT BROUGHT TO CT
[2019-11-08] MEDS ORDERED: HYDROMORPHONE INJ 0.5 MG/0.5 ML SYRINGE IV ONE (07:00)
[2019-11-08 07:03] LABS: BASOPHILS % (AUTO) 0.5 % (0.0-2.0); EOSINOPHILS % (AUTO) 0.2 % (0.0-6.0); HEMATOCRIT 40 % (33-45); HEMOGLOBIN 13.4 g/dL (11.5-14.8); LYMPHOCYTES # (AUTO) 0.7 /CMM (0.8-4.8); LYMPHOCYTES % (AUTO) 7.8 % (20.0-44.0); MEAN CORPUSCULAR HGB CONC 33 g/dl (31.0-36.0); MEAN CORPUSCULAR VOLUME 87 fL (82-100); MONOCYTES # (AUTO) 0.4 /CMM (0.1-1.30); MONOCYTES % (AUTO) 4.2 % (2.0-12.0); NEUTROPHILS # (AUTO) 7.8 /CMM (1.8-8.9); NEUTROPHILS % (AUTO) 87.3 % (43.0-81.0); PLATELET COUNT (AUTO) 248 /CMM (150-450); RED BLOOD CELL COUNT(AUTO) 4.61 MIL/uL (4.0-5.2)
[2019-11-08 07:16] LABS: ALBUMIN 3.6 g/dL (3.4-5.0); BILIRUBIN,DIRECT 0.1 mg/dL (0.0-0.2); BILIRUBIN,TOTAL 0.4 mg/dL (0.2-1.0); CALCIUM, SERUM 9.1 mg/dL (8.5-10.1); CREATININE 1.1 mg/dL (0.6-1.3); POTASSIUM 3.8 mmol/L (3.5-5.1); TOTAL PROTEIN, SERUM 6.8 g/dL (6.4-8.2)
--- NOTE | 2019-11-08 07:36 | NUR ---
called lab to process urine specimen and made aware.
[2019-11-08 07:40] LABS: APPEARANCE,URINE CLOUDY (CLEAR); BILIRUBIN,URINE NEGATIVE (NEGATIVE); BLOOD, URINE SMALL Ery/uL (NEGATIVE); COLOR,URINE YELLOW (YELLOW); KETONES,URINE NEGATIVE (NEGATIVE); LEUKOCYTE ESTERASE ,URINE NEGATIVE (NEGATIVE); NITRITE, URINE NEGATIVE (NEGATIVE); PH,URINE 8.5 (5.0-8.0); PROTEIN,URINE NEGATIVE (NEGATIVE); UGLUCOSE NEGATIVE (NEGATIVE); UROBILINOGEN,URINE 0.2 EU/dL (0.2)
[2019-11-08 08:01] LABS: BACTERIA,URINE Few /HPF (None Seen); RBC,URINE 20-30 /HPF (0-2); SQUAMOUS EPITHELIAL CELL,UR Few /HPF (None Seen); URINE AMORPHOUS PHOSPHATES Few /HPF (None Seen)
[2019-11-08 08:13] VITALS: BP 148/83
--- NOTE | 2019-11-08 08:13 | NUR ---
Patient discharged to home in stable condition. Written and verbal after care instructions given. Patient verbalizes understanding of instruction.IV removed. Catheter intact and site benign. Pressure and 4x4 applied to site. No bleeding noted.
== END 2019-11-08 08:13 | disposition home or self-care (01) ==
LOC: ER 06:13
DX: N13.2 Hydronephrosis with renal and ureteral calculous obstruction (principal); Z90.89 Acquired absence of other organs; Z98.890 Other specified postprocedural states; Z88.2 Allergy status to sulfonamides; Z60.2 Problems related to living alone
CPT/HCPCS: 36415; 74176; 80048; 80076; 81001; 83690; 85025; 96374; 96375; 99284; J1170; J1885; J2405; J7040; 81000-TC

== ENCOUNTER 2020-08-09 19:02 | Inpatient (IN) | payer MEDICAID ==
[~2020-08-09] VITALS: Ht 165.1 cm; Wt 65.3 kg
--- NOTE | 2020-08-09 19:15 | NUR ---
bibra 89 from home c/o R flank pain x 4 days. hx kidney stones. received 100mcg of fentanyl per RA. pt states pain 10/10 at this time. pt aox4 rr even and unlabored. no active nvd at this time. pt connected to monitor. waiting for md cook.
--- NOTE | 2020-08-09 19:25 | NUR ---
blood work sent to lab
[2020-08-09] MEDS ORDERED: KETOROLAC TROMETHAMINE 15 MG/ML VIAL ONE ×2 (19:26→21:13)
[2020-08-09] MEDS ORDERED: ONDANSETRON HCL/PF 4 MG/2 ML VIAL ONE ×2 (19:26→21:13)
[2020-08-09 19:27] LABS: BASOPHILS # (AUTO) 0.1 /CMM (0.0-0.2); BASOPHILS % (AUTO) 0.7 % (0.0-2.0); EOSINOPHILS % (AUTO) 1.5 % (0.0-6.0); HEMATOCRIT 42 % (33-45); HEMOGLOBIN 13.8 g/dL (11.5-14.8); LYMPHOCYTES # (AUTO) 1.3 /CMM (0.8-4.8); LYMPHOCYTES % (AUTO) 13.9 % (20.0-44.0); MEAN CORPUSCULAR HGB CONC 33 g/dl (31.0-36.0); MEAN CORPUSCULAR VOLUME 86 fL (82-100); MONOCYTES # (AUTO) 0.9 /CMM (0.1-1.30); MONOCYTES % (AUTO) 9.7 % (2.0-12.0); NEUTROPHILS % (AUTO) 74.2 % (43.0-81.0); PLATELET COUNT (AUTO) 295 /CMM (150-450); RED BLOOD CELL COUNT(AUTO) 4.83 MIL/uL (4.0-5.2); WHITE BLOOD COUNT (AUTO) 9.4 K/uL (4.3-11.0)
[2020-08-09] MEDS ORDERED: IV NS 0.9% 1,000 ML BAG IV ONE (19:30)
[2020-08-09] MEDS ORDERED: ONDANSETRON HCL/PF 4 MG/2 ML VIAL IVP ONE (19:30)
[2020-08-09] MEDS ORDERED: KETOROLAC TROMETHAMINE INJ 30 MG/ML VIAL IV ONE ×2 (19:30→21:30)
[2020-08-09] MEDS ORDERED: MORPHINE SULFATE INJ 2 MG/ML DISP.SYRIN IV ONE (19:30)
[2020-08-09] MEDS ORDERED: MORPHINE SULFATE INJ 4 MG/ML DISP.SYRIN ONE (19:31)
--- NOTE | 2020-08-09 19:35 | NUR ---
sudeep at bedside. pt medicated as ordered.
[2020-08-09 19:48] LABS: CALCIUM, SERUM 9.4 mg/dL (8.5-10.1); CREATININE 1.3 mg/dL (0.6-1.3); POTASSIUM 4.3 mmol/L (3.5-5.1)
[2020-08-09 19:54] LABS: ALBUMIN 3.4 g/dL (3.4-5.0); BILIRUBIN,DIRECT 0.2 mg/dL (0.0-0.2); BILIRUBIN,TOTAL 0.7 mg/dL (0.2-1.0); TOTAL PROTEIN, SERUM 7.6 g/dL (6.4-8.2)
[2020-08-09] MEDS ORDERED: HYDROMORPHONE 1 MG/1 ML DISP.SYRIN IV ONE ×2 (20:00→21:30)
[2020-08-09] MEDS ORDERED: HYDROMORPHONE 1 MG/1 ML DISP.SYRIN ONE ×2 (20:00→21:13)
--- NOTE | 2020-08-09 20:38 | NUR ---
urine sent to lab
[2020-08-09 20:55] LABS: BILIRUBIN,URINE Negative (NEGATIVE); COLOR,URINE YELLOW (YELLOW); LEUKOCYTE ESTERASE ,URINE Small (NEGATIVE); NITRITE, URINE Negative (NEGATIVE); PROTEIN,URINE Negative (NEGATIVE); UGLUCOSE Negative (NEGATIVE); UROBILINOGEN,URINE 0.2 EU/dL (0.2)
--- NOTE | 2020-08-09 21:03 | NUR ---
pt placed on 2L O2 via NC
[2020-08-09 21:10] LABS: BACTERIA,URINE None seen /HPF (None Seen); RBC,URINE 0-2 /HPF (0-2); SQUAMOUS EPITHELIAL CELL,UR Few /HPF (None Seen); WBC,URINE 21-50 /HPF (0-3)
--- NOTE | 2020-08-09 21:11 | NUR ---
verbal order from GUSTABO VICK 15mg toradol, 0.5mg dilauded, and 4mg zofran iv
[2020-08-09] MEDS ORDERED: ONDANSETRON HCL/PF 4 MG/2 ML VIAL IV ONE (21:30)
--- NOTE | 2020-08-09 21:50 | NUR ---
XRAY AT BEDSIDE
--- NOTE | 2020-08-09 21:58 | NUR ---
COVID SWAB SENT TO LAB
[2020-08-09] MEDS ORDERED: CEFTRIAXONE 1GM BAG (ER ONLY) 1 GM/50 ML PIGGYBACK IV ONE (22:30)
[2020-08-09] MEDS ORDERED: ANESTHESIA TRAY IN PYXIS 1 EA TRAY MC ONE (22:32)
[2020-08-09] MEDS ORDERED: MIDAZOLAM HCL 2 MG/2ML VIAL ONE (22:50)
[2020-08-09] MEDS ORDERED: IV NS 0.9% 1,000 ML IV PRN (23:00)
[2020-08-09] MEDS ORDERED: ONDANSETRON HCL/PF 4 MG/2 ML VIAL IVP PRN (23:00)
[2020-08-09] MEDS ORDERED: MAGNESIUM HYDROXIDE 30 ML UDC PO PRN (23:00)
[2020-08-09] MEDS ORDERED: MAG HYDROX/AL HYDROX/SIMETH 30 ML UDC PO PRN (23:00)
[2020-08-09] MEDS ORDERED: ZOLPIDEM TARTRATE 5 MG TABLET PO PRN (23:00)
[2020-08-09] MEDS ORDERED: Z GUARD REMEDY 2 OZ OINT TP PRN (23:00)
[2020-08-09] MEDS ORDERED: ACETAMINOPHEN 325 MG TABLET PO PRN (23:00)
--- NOTE | 2020-08-09 23:10 | NUR ---
pt taken to surgery
--- NOTE | 2020-08-09 23:20 | NUR ---
report given to Luis Murphy RN for [facility]
[2020-08-10 01:00] VITALS: BP 157/79
--- NOTE | 2020-08-10 01:50 | NUR ---
MS RN NOTES PATIENT CAME IN AT EXACTLY 0100 AM VIA [employer]. RECEIVED REPORT ON THE PHON FROM RN, EDGARDO. PATIENT WAS ALERT GOING UP HERE BUT WAS VERY SHAKY, FELT COLD TO TOUCH, AND ALMOST BLUISH SKIN. PATIENT WAS GIVEN BY OR NURSE MEPEREDINE. PATIENT WAS STABLE AFTER WARDS. VS FOLLOW: BP- 144/78, T- 97.3, HR- 94, AND 100% IN 2LPM OXYGEN VIA NC. PATIENT VOIDED AND IN STABLE CONDITION NOW. WILL CONTINUE TO MONITOR.
[2020-08-10 02:23] VITALS: BP 144/78
[2020-08-10] MEDS: HYDROMORPHONE INJ 2 MG/ML DISP.SYRIN IV PRN ×2 (04:50→08:46)
[2020-08-10] MEDS ORDERED: PIPERACILLIN /TAZOBACTAM 3.375 G in IV D5W 50 ML IV SCH (05:00)
--- NOTE | 2020-08-10 05:00 | NUR ---
MS RN NOTES PATIENT IN PAIN. 10 IN FLANK AFTER AMBULATING TO REST ROOM. ASKED FOR PAIN MEDS. GIVEN DILAUDID PRN. WILL REASSESS.
[2020-08-10] MEDS ORDERED: PIPERACILLIN /TAZOBACTAM 3.375 G VIAL IV ONE (05:07)
[2020-08-10 06:32] LABS: BASOPHILS % (AUTO) 0.4 % (0.0-2.0); EOSINOPHILS % (AUTO) 0.8 % (0.0-6.0); HEMATOCRIT 38 % (33-45); HEMOGLOBIN 12.5 g/dL (11.5-14.8); LYMPHOCYTES # (AUTO) 0.6 /CMM (0.8-4.8); LYMPHOCYTES % (AUTO) 5.8 % (20.0-44.0); MEAN CORPUSCULAR HGB CONC 33 g/dl (31.0-36.0); MEAN CORPUSCULAR VOLUME 88 fL (82-100); MONOCYTES # (AUTO) 0.4 /CMM (0.1-1.30); MONOCYTES % (AUTO) 3.6 % (2.0-12.0); NEUTROPHILS # (AUTO) 8.9 /CMM (1.8-8.9); NEUTROPHILS % (AUTO) 89.4 % (43.0-81.0); PLATELET COUNT (AUTO) 235 /CMM (150-450); RED BLOOD CELL COUNT(AUTO) 4.35 MIL/uL (4.0-5.2); WHITE BLOOD COUNT (AUTO) 9.9 K/uL (4.3-11.0)
--- NOTE | 2020-08-10 06:35 | NUR ---
MS RN CLOSING PATIENT IN BED WITH EYES CLOSED, EASY TO AROUSE. A/OX4. PAIN MANAGED WITH MEDICATIONS. ANTIBIOTIC RUNNING. SCHEDULED MEDS ADMINISTERED. ABLE TO MAKE NEEDS KNOWN, ALL NEEDS ATTENDED. PATIENT AMBULATORY BUT C/O BURNING PAIN WHEN URINATING. S/P CYSTOSCOPY WITH DOUBLE J STENT PLACEMENT. SAFETY KEPT IN PLACE THE WHOLE SHIFT: BED IN LOWEST, LOCKED POSITION; CALL LIGHT WITHIN REACH. MRSA ACTIVE SURVEILLANCE DONE AT BED SIDE. WILL ENDORSE CARE TO MORNING RN.
[2020-08-10 07:11] LABS: CALCIUM, SERUM 8.5 mg/dL (8.5-10.1); CREATININE 1.1 mg/dL (0.6-1.3); MAGNESIUM 1.8 mg/dL (1.8-2.4); PHOSPHORUS 3.5 mg/dL (2.5-4.9); POTASSIUM 3.9 mmol/L (3.5-5.1)
[2020-08-10 07:26] LABS: THYROID STIMULATING HORMONE 1.923 uIU/mL (0.358-3.74)
[2020-08-10] MEDS ORDERED: SUMA100T16 PO (07:52)
[2020-08-10 08:00] VITALS: BP 111/68
[2020-08-10] MEDS: PANTOPRAZOLE 40 MG VIAL IV SCH (08:45)
[2020-08-10] MEDS: PIPERACILLIN /TAZOBACTAM 3.375 G in IV D5W 100 ML IV SCH ×2 (10:33→17:43)
--- NOTE | 2020-08-10 10:37 | NUR ---
given mom for constipation.
[2020-08-10] MEDS: HYDROCODONE/APAP 5/325MG TABLET PO PRN (10:57)
[2020-08-10 16:00] VITALS: BP 127/73
[2020-08-10] MEDS: PHENAZOPYRIDINE HCL 200 MG TABLET PO PRN (16:08)
[2020-08-10] MEDS: SUMATRIPTAN SUCCINATE 100 MG TABLET PO PRN (16:08)
--- NOTE | 2020-08-10 17:09 | NUR ---
medicated x1 with dilaudid,x1 with norco.now given imitrex for headache as well as pyridium for dysuria.additionally medicated x1 with zofran.states she vomited liquid,small amt. earlier.
--- NOTE | 2020-08-10 19:45 | NUR ---
MS/RN OPENING NOTE RECEIVED PATIENT RESTING IN BED. AWAKE, ALERT AND ORIENTED X 4. ABLE TO MAKE NEEDS KNOWN. NO COMPLAINTS OF PAIN AT THIS TIME. IV ACCESS TO LEFT AC #20G INTACT AND PATENT. CONTINUES ON IV ZOSYN. CONTINUES ON IVF NS @ 100ML/HR. PATIENT STATES SHE TOLERATED HER SOUP AND PO LIQUIDS AT DINNER TIME. CONTINUES ON O2 2L VIA NC WITH NO S/SX OF RESPIRATORY DISTRESS NOTED. CALL LIGHT WITHIN REACH. ASPIRATION, FALL AND SAFETY PRECAUTIONS MAINTAINED. WILL CONTINUE TO MONITOR.
[2020-08-10 20:00] VITALS: BP 132/72
[2020-08-11] MEDS: HYDROMORPHONE INJ 2 MG/ML DISP.SYRIN IV PRN ×2 (00:29→04:51)
[2020-08-11] MEDS: PIPERACILLIN /TAZOBACTAM 3.375 G in IV D5W 100 ML IV SCH ×2 (02:45→09:01)
[2020-08-11 06:26] LABS: BASOPHILS % (AUTO) 0.9 % (0.0-2.0); EOSINOPHILS % (AUTO) 1.6 % (0.0-6.0); HEMATOCRIT 36 % (33-45); HEMOGLOBIN 12.1 g/dL (11.5-14.8); LYMPHOCYTES # (AUTO) 0.7 /CMM (0.8-4.8); LYMPHOCYTES % (AUTO) 17.3 % (20.0-44.0); MEAN CORPUSCULAR HGB CONC 34 g/dl (31.0-36.0); MEAN CORPUSCULAR VOLUME 86 fL (82-100); MONOCYTES # (AUTO) 0.6 /CMM (0.1-1.30); MONOCYTES % (AUTO) 15.8 % (2.0-12.0); NEUTROPHILS # (AUTO) 2.5 /CMM (1.8-8.9); NEUTROPHILS % (AUTO) 64.4 % (43.0-81.0); PLATELET COUNT (AUTO) 215 /CMM (150-450); RED BLOOD CELL COUNT(AUTO) 4.12 MIL/uL (4.0-5.2); WHITE BLOOD COUNT (AUTO) 3.8 K/uL (4.3-11.0)
--- NOTE | 2020-08-11 06:40 | NUR ---
MS/RN CLOSING NOTE PATIENT CURRENTLY SLEEPING IN BED. ALERT AND ORIENTED X 4. ABLE TO MAKE NEEDS KNOWN. NO COMPLAINTS OF PAIN AT THIS TIME. IV ACCESS TO LEFT AC #20G INTACT AND PATENT. CONTINUES ON IV ZOSYN. CONTINUES ON IVF NS @ 100ML/HR. CONTINUES ON O2 2L VIA NC WITH NO S/SX OF RESPIRATORY DISTRESS NOTED. CALL LIGHT WITHIN REACH. ASPIRATION, FALL AND SAFETY PRECAUTIONS MAINTAINED. WILL ENDORSE PLAN OF CARE TO ONCOMING SHIFT.
[2020-08-11 06:46] LABS: CALCIUM, SERUM 8.2 mg/dL (8.5-10.1); MAGNESIUM 1.8 mg/dL (1.8-2.4); PHOSPHORUS 2.8 mg/dL (2.5-4.9); POTASSIUM 4.1 mmol/L (3.5-5.1)
[2020-08-11] MEDS: HYDROCODONE/APAP 5/325MG TABLET PO PRN ×2 (07:34→14:31)
--- NOTE | 2020-08-11 07:53 | NUR ---
MS/RN OPENING NOTES RECEIVED PATIENT IN BED, HAVING BREAKFAST. ALERT AND ORIENTED X 4. ABLE TO MAKE NEEDS KNOWN. COMPLAINTS OF MIGRAINE NOTED WITH A PAIN OF 8/10. NORCO 5/325MG GIVEN. IV ACCESS TO LEFT AC #20G INTACT AND PATENT. CONTINUES ON IV ZOSYN. CONTINUES ON IVF NS @ 100ML/HR. CONTINUES ON O2 2L VIA NC WITH NO S/SX OF RESPIRATORY DISTRESS NOTED. CALLED AND FOLLOWED UP PHARMACY REGARDING PATIENT'S MEDICATIONS NOT AVAILABLE: PYRIDIUM, 200MG AND IMITREX 100MG. PHARMACY SAID THEY WILL SEND MEDS RIGHT NOW. SAFETY PRECAUTIONS IN PLACED. BED LOCKED ON LOWEST POSITION, CALL LIGHT WITHIN REACH. WILL CONTINUE TO MONITOR.
[2020-08-11 08:00] VITALS: BP 113/56
[2020-08-11] MEDS: PANTOPRAZOLE 40 MG VIAL IV SCH (09:00)
[2020-08-11] MEDS: PHENAZOPYRIDINE HCL 200 MG TABLET PO PRN (09:00)
[2020-08-11] MEDS: SUMATRIPTAN SUCCINATE 100 MG TABLET PO PRN (09:17)
[2020-08-11] MEDS ORDERED: POLYETHYLENE GLYCOL 3350 17 GM POWD.PACK PO PRN (13:30)
--- NOTE | 2020-08-11 15:50 | NUR ---
MS/CYLINDER TESTER NOTES PATIENT IS ALERT AND ORIENTED X4, ABLE TO MAKE NEEDS KNOWN. DR. KOO SAW PATIENT AND ORDERED DISCHARGE FOR THE PATIENT. PATIENT IS MEDICALLY STABLE. DISCHARGED INSTRUCTIONS DISCUSSED WITH THE PATIENT, BELONGINGS ACCOUNTED FOR. ESCORTED PATIENT OUT OF THE HOSPITAL AND FRIEND RAY (STUD DAIRY CATTLE FARMER) WAS WAITING FOR THE PATIENT OUTSIDE THE HOSPITAL. PATIENT WAS VERY GRATEFUL FOR ALL THE SERVICES PROVIDED.
== END 2020-08-11 15:55 | disposition home or self-care (01) | DRG 463 ==
LOC: ER 19:04 → MED 23:04
PROVIDERS: ADMIT Nurse Practitioner Acute Care; ATTEND Student in an Organized Health Care Education/Training Program
PROC: 0T768DZ Dilation of Right Ureter with Intraluminal Device, Via Natural or Artificial Opening Endoscopic (ICD-10-PCS; principal; 2020-08-10)
PROC: BT16YZZ Fluoroscopy of Right Ureter using Other Contrast (ICD-10-PCS; 2020-08-10)
DX: N13.6 Pyonephrosis (principal); N28.1 Cyst of kidney, acquired; K44.9 Diaphragmatic hernia without obstruction or gangrene; K59.00 Constipation, unspecified; Z20.822 Contact with and (suspected) exposure to COVID-19; Z90.49 Acquired absence of other specified parts of digestive tract; K57.30 Diverticulosis of large intestine without perforation or abscess without bleeding; Z87.442 Personal history of urinary calculi; N83.209 Unspecified ovarian cyst, unspecified side; Z88.2 Allergy status to sulfonamides; G43.909 Migraine, unspecified, not intractable, without status migrainosus
CPT/HCPCS: 36415; 71045-TC; 74018; 80048-TC; 80061-TC; 80076-TC; 81001; 83690-TC; 83735-TC; 84100-TC; 84443-TC; 85025-TC; 85610-TC; 85730-TC; 87081-TC; 87086-TC; A4217; C1769; C2617; C9113; C9803; G0378; J0696; J1170; J1885; J2250; J2270; J2405; J2543; J2704; J7030; J7060

== ENCOUNTER 2022-05-28 18:00 | Emergency (ER) | payer MEDICAID ==
[~2022-05-28] VITALS: Ht 165.1 cm; Wt 59.0 kg
[~2022-05-28 18:00] MED LIST: SUMA100T16 PO
--- NOTE | 2022-05-28 18:26 | NUR ---
C/O LEFT "PINKY FINGER STUMP INFECTION" PAIN X 2 DAYS. 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 PAIN 5/10 ON PAIN SCALE.
[2022-05-28] MEDS ORDERED: TDAP [DIPH/PERTUSSIS/TET] 0.5 ML VIAL IM ONE ×2 (18:59→19:00)
[2022-05-28] MEDS ORDERED: HYDROCODONE/APAP 5/325MG TABLET ONE ×2 (18:59→19:41)
[2022-05-28] MEDS ORDERED: CLINDAMYCIN HCL 150 MG CAPSULE ONE (18:59)
[2022-05-28] MEDS ORDERED: CLINDAMYCIN HCL 150 MG CAPSULE PO ONE (19:00)
[2022-05-28] MEDS ORDERED: HYDROCODONE/APAP 5/325MG TABLET PO ONE ×2 (19:00→20:00)
[2022-05-28] MEDS ORDERED: CLIN300C12 PO (20:28)
[2022-05-28] MEDS ORDERED: IBUP-1953 PO (20:28)
--- NOTE | 2022-05-28 20:51 | NUR ---
Patient discharged to home in stable condition. Written and verbal after care instructions given. Patient verbalizes understanding of instruction.
[2022-05-28 21:03] VITALS: BP 128/74
== END 2022-05-28 21:04 | disposition home or self-care (01) ==
LOC: ER 18:02
DX: L03.012 Cellulitis of left finger (principal); Z87.442 Personal history of urinary calculi; Z90.49 Acquired absence of other specified parts of digestive tract; Z60.2 Problems related to living alone; Z79.899 Other long term (current) drug therapy; Z88.2 Allergy status to sulfonamides
CPT/HCPCS: 99284; 10060; 90471; 90715; 73140; A6403

== ENCOUNTER 2024-04-03 17:51 | Emergency (ER) | payer MEDICAID ==
[~2024-04-03] VITALS: Ht 165.1 cm; Wt 59.9 kg
[~2024-04-03 17:51] MED LIST changes: +CLIN300C12 PO; +IBUP-1953 PO
[2024-04-03 18:08] VITALS: TEMP 97.9
[2024-04-03] MEDS ORDERED: ACETAMINOPHEN ES 500 MG TABLET ONE (18:42)
[2024-04-03] MEDS ORDERED: KETOROLAC TROMETHAMINE 15 MG/ML VIAL ONE (18:42)
[2024-04-03] MEDS: ACETAMINOPHEN ES 500 MG TABLET PO ONE (18:47)
[2024-04-03] MEDS: KETOROLAC TROMETHAMINE 15 MG/ML VIAL IM ONE (18:48)
[2024-04-03] MEDS ORDERED: ACET-2605 PO (20:50)
[2024-04-03] MEDS ORDERED: IBUP-1490 PO (20:50)
[2024-04-03] MEDS ORDERED: TRAM50TA2 PO (20:50)
[2024-04-03] MEDS: HYDROCODONE/APAP 5/325MG TABLET PO ONE (21:00)
[2024-04-03] MEDS ORDERED: HYDROCODONE/APAP 5/325MG TABLET ONE (21:00)
[2024-04-03 21:06] VITALS: BP 120/75; O2SAT 99
== END 2024-04-03 21:07 | disposition home or self-care (01) ==
LOC: ER 18:04
DX: M25.562 Pain in left knee (principal); Z90.49 Acquired absence of other specified parts of digestive tract; Z88.2 Allergy status to sulfonamides; Z60.2 Problems related to living alone
CPT/HCPCS: 99283; 29505; 96372; 73564; J1885

== ENCOUNTER 2024-07-07 11:55 | Inpatient (IN) | payer MEDICAID ==
[~2024-07-07] VITALS: Ht 165.1 cm; Wt 57.2 kg
[~2024-07-07 11:55] MED LIST changes: +ACET-2605 PO; +IBUP-1490 PO; +TRAM50TA2 PO
[2024-07-07] MEDS: ONDANSETRON HCL/PF 4 MG/2 ML VIAL IV ONE (12:30)
[2024-07-07] MEDS: IV NS 0.9% 1,000 ML BAG IV ONE ×2 (12:30→15:08)
[2024-07-07] MEDS ORDERED: ONDANSETRON HCL/PF 4 MG/2 ML VIAL ONE (12:40)
[2024-07-07] MEDS ORDERED: MORPHINE SULFATE INJ 4 MG/ML DISP.SYRIN ONE ×2 (12:41→14:56)
[2024-07-07 12:48] LABS: BASOPHILS # (AUTO) 0.1 K/uL (0.0-0.2); BASOPHILS % (AUTO) 0.9 % (0.0-2.0); EOSINOPHILS % (AUTO) 0.1 % (0.0-6.0); HEMATOCRIT 35 % (33-45); HEMOGLOBIN 11.6 g/dL (11.5-14.8); LYMPHOCYTES # (AUTO) 0.4 K/uL (0.8-4.8); LYMPHOCYTES % (AUTO) 3.2 % (20.0-44.0); MEAN CORPUSCULAR HEMOGLOBIN 26 PG (26.0-33.0); MEAN CORPUSCULAR HGB CONC 33 g/dl (31.0-36.0); MEAN CORPUSCULAR VOLUME 78 fL (82-100); MONOCYTES # (AUTO) 0.8 K/uL (0.1-1.30); MONOCYTES % (AUTO) 6.1 % (2.0-12.0); NEUTROPHILS # (AUTO) 11.9 K/uL (1.8-8.9); NEUTROPHILS % (AUTO) 89.7 % (43.0-81.0); PLATELET COUNT (AUTO) 325 K/uL (150-450); RED BLOOD CELL COUNT(AUTO) 4.44 MIL/uL (4.0-5.2); RED CELL DISTRIBUTION WIDTH 16.7 % (11.5-15.0); WHITE BLOOD COUNT (AUTO) 13.2 K/uL (4.3-11.0)
[2024-07-07] MEDS: MORPHINE SULFATE INJ 2 MG/ML DISP.SYRIN IV ONE ×2 (12:49→15:08)
[2024-07-07 12:53] LABS: APPEARANCE,URINE SLIGHTLY CLOUDY (CLEAR); BILIRUBIN,URINE NEGATIVE (NEGATIVE); BLOOD, URINE TRACE-INTA Ery/uL (NEGATIVE); COLOR,URINE YELLOW (YELLOW); KETONES,URINE 1+ mg/dL (NEGATIVE); LEUKOCYTE ESTERASE ,URINE 2+ (NEGATIVE); NITRITE, URINE POSITIVE (NEGATIVE); PROTEIN,URINE 1+ mg/dl (NEGATIVE); UGLUCOSE NEGATIVE (NEGATIVE)
[2024-07-07 13:02] LABS: CALCIUM, SERUM 9.5 mg/dL (8.5-10.1); CARBON DIOXIDE 27 mmol/L (21-32); CHLORIDE 98 mmol/L (98-107); CREATININE 0.8 mg/dL (0.6-1.3); GLUCOSE 123 mg/dL (74-106); POTASSIUM 4.2 mmol/L (3.5-5.1); SODIUM SERUM 133 mmol/L (136-145); UREA NITROGEN, BLOOD 10 mg/dL (7-18)
[2024-07-07] MEDS ORDERED: IV NS 0.9% 250 ML IV ONE (13:06)
[2024-07-07] MEDS ORDERED: IOHEXOL-300 100 ML VIAL IV ONE (13:06)
[2024-07-07 13:09] LABS: ALANINE AMINOTRANSFERASE 69 U/L (12-78); ALKALINE PHOSPHATASE 171 U/L (46-116); ASPARTATE AMINOTRANSFERASE 22 U/L (15-37); BILIRUBIN,DIRECT 0.3 mg/dL (0.0-0.2); LIPASE 21 U/L (16-77); TOTAL PROTEIN, SERUM 7.3 g/dL (6.4-8.2)
[2024-07-07 13:22] LABS: ADD URINE CULTURE YES; BACTERIA,URINE 2+ /HPF (None Seen); RBC,URINE 0-2 /HPF (0-2); WBC,URINE 81-100 /HPF (0-3)
[2024-07-07] MEDS ORDERED: FAMO-131 PO (14:33)
[2024-07-07] MEDS ORDERED: TAMS-12 PO (14:33)
[2024-07-07] MEDS ORDERED: ONDA4TAB5 PO (14:33)
[2024-07-07] MEDS ORDERED: HYDR-4303 PO (14:33)
[2024-07-07] MEDS: ACETAMINOPHEN 325 MG TABLET PO ONE (15:08)
[2024-07-07] MEDS: CEFTRIAXONE 1 G in IV D5W 50 ML IV ONE (15:09)
[2024-07-07] MEDS ORDERED: IBUP-1955 PO (15:24)
[2024-07-07] MEDS ORDERED: ACET-73 PO (15:24)
[2024-07-07] MEDS ORDERED: METH500T6 PO (15:24)
[2024-07-07] MEDS ORDERED: POLY510P31 PO (15:24)
[2024-07-07] MEDS ORDERED: MAGNESIUM HYDROXIDE 30 ML UDC PO PRN (16:00)
[2024-07-07] MEDS ORDERED: ZOLPIDEM TARTRATE 5 MG TABLET PO PRN (16:00)
[2024-07-07] MEDS ORDERED: CEFTRIAXONE 1 G in IV D5W 50 ML IV SCH (16:00)
[2024-07-07] MEDS ORDERED: Z GUARD REMEDY 4 OZ OINT TP PRN (16:00)
[2024-07-07] MEDS ORDERED: MAG HYDROX/AL HYDROX/SIMETH 30 ML UDC PO PRN (16:00)
[2024-07-07 18:06] VITALS: BP 125/65; TEMP 100.8; TEMP 98.6; O2SAT 95
[2024-07-07] MEDS: MORPHINE SULFATE INJ 2 MG/ML DISP.SYRIN IV PRN (18:13)
[2024-07-07] MEDS: METHOCARBAMOL (500MG) 500 MG TABLET PO SCH (18:14)
[2024-07-07 20:00] VITALS: BP 113/64; TEMP 100.4; O2SAT 96
[2024-07-07] MEDS: IV NS 0.9% 1,000 ML IV PRN (20:11)
[2024-07-07] MEDS: PIPERACILLIN /TAZOBACTAM 3.375 G in IV D5W 100 ML IV SCH (20:14)
[2024-07-07] MEDS ORDERED: PIPERACILLIN /TAZOBACTAM 3.375 G in IV D5W 50 ML IV SCH (21:00)
[2024-07-08] MEDS: ACETAMINOPHEN 325 MG TABLET PO PRN (01:28)
[2024-07-08 02:30] VITALS: BP 122/64; TEMP 98.8; O2SAT 96
[2024-07-08] MEDS: PANTOPRAZOLE 40 MG TABLET.DR PO SCH (07:38)
[2024-07-08 08:00] VITALS: BP 112/69; TEMP 99.1; O2SAT 99
[2024-07-08] MEDS: POLYETHYLENE GLYCOL 3350 17 GM POWD.PACK PO SCH (08:24)
[2024-07-08] MEDS: TAMSULOSIN 0.4 MG CAP.SR.24H PO SCH (08:24)
[2024-07-08 09:54] LABS: BASOPHILS % (AUTO) 0.5 % (0.0-2.0); EOSINOPHILS # (AUTO) 0.1 K/uL (0.0-0.7); EOSINOPHILS % (AUTO) 0.7 % (0.0-6.0); HEMATOCRIT 31 % (33-45); HEMOGLOBIN 10.5 g/dL (11.5-14.8); LYMPHOCYTES # (AUTO) 0.6 K/uL (0.8-4.8); LYMPHOCYTES % (AUTO) 7.2 % (20.0-44.0); MEAN CORPUSCULAR HEMOGLOBIN 27 PG (26.0-33.0); MEAN CORPUSCULAR HGB CONC 33 g/dl (31.0-36.0); MEAN CORPUSCULAR VOLUME 80 fL (82-100); MONOCYTES # (AUTO) 0.8 K/uL (0.1-1.30); MONOCYTES % (AUTO) 9.1 % (2.0-12.0); NEUTROPHILS # (AUTO) 7.4 K/uL (1.8-8.9); NEUTROPHILS % (AUTO) 82.5 % (43.0-81.0); PLATELET COUNT (AUTO) 259 K/uL (150-450); RED BLOOD CELL COUNT(AUTO) 3.93 MIL/uL (4.0-5.2); RED CELL DISTRIBUTION WIDTH 16.8 % (11.5-15.0)
[2024-07-08] MEDS: HYDROCODONE/APAP 5/325MG TABLET PO PRN (09:59)
[2024-07-08 10:03] LABS: CALCIUM, SERUM 8.5 mg/dL (8.5-10.1); CREATININE 0.8 mg/dL (0.6-1.3); MAGNESIUM 1.9 mg/dL (1.8-2.4); PHOSPHORUS 2.9 mg/dL (2.5-4.9)
[2024-07-08] MEDS: SUMATRIPTAN SUCCINATE 100 MG TABLET PO PRN (11:12)
[2024-07-08] MEDS: KETOROLAC TROMETHAMINE INJ 30 MG/ML VIAL IV SCH (13:00)
[2024-07-08 16:00] VITALS: BP 102/54; TEMP 98.4; O2SAT 100
[2024-07-08 20:00] VITALS: BP 126/74; TEMP 97.3; O2SAT 100
[2024-07-08 22:05] VITALS: BP 126/74; TEMP 97.3; O2SAT 100
[2024-07-09 08:33] VITALS: BP 126/58; TEMP 98.1; O2SAT 97
[2024-07-09] MEDS: ONDANSETRON HCL/PF 4 MG/2 ML VIAL IVP PRN (10:16)
[2024-07-09] MEDS: ENSURE CLEAR 237 ML LIQUID (MIX BERRY) PO SCH (17:02)
[2024-07-09] MEDS: VANCOMYCIN 1 GM in IV D5W 250ml IV ONE (18:02)
[2024-07-09] MEDS: VANCOMYCIN 500 MG in IV D5W 100ml IV ONE (18:56)
[2024-07-09 20:00] VITALS: BP 144/75; TEMP 98.1; O2SAT 98
[2024-07-09] MEDS: MEROPENEM 500 MG in IV NS 0.9% 50 ML IV SCH (20:50)
[2024-07-10] MEDS: VANCOMYCIN 1 GM in IV D5W 250ml IV SCH (06:04)
[2024-07-10 08:00] VITALS: BP 138/80; TEMP 98.4; O2SAT 98
[2024-07-10 08:30] VITALS: BP 138/80; TEMP 98.4; O2SAT 98
[2024-07-10 08:30] LABS: CALCIUM, SERUM 8.3 mg/dL (8.5-10.1); CREATININE 0.6 mg/dL (0.6-1.3); POTASSIUM 3.5 mmol/L (3.5-5.1)
[2024-07-10] MEDS: ENSURE ENLIVE 237 ML LIQUID (VANILLA) PO SCH (09:26)
[2024-07-10] MEDS: PROSOURCE / PROSTAT (PYXIS) 30 ML UDC PO SCH (09:26)
[2024-07-10 16:00] VITALS: BP 124/79; TEMP 98.4; O2SAT 97
[2024-07-10 20:00] VITALS: BP 160/87; TEMP 98.4; O2SAT 97
[2024-07-11 00:25] VITALS: BP 140/90
[2024-07-11 06:24] LABS: BASOPHILS # (AUTO) 0.1 K/uL (0.0-0.2); BASOPHILS % (AUTO) 1.2 % (0.0-2.0); EOSINOPHILS # (AUTO) 0.5 K/uL (0.0-0.7); EOSINOPHILS % (AUTO) 9.7 % (0.0-6.0); HEMATOCRIT 30 % (33-45); LYMPHOCYTES % (AUTO) 18.8 % (20.0-44.0); MEAN CORPUSCULAR HEMOGLOBIN 26 PG (26.0-33.0); MEAN CORPUSCULAR HGB CONC 33 g/dl (31.0-36.0); MEAN CORPUSCULAR VOLUME 78 fL (82-100); MONOCYTES # (AUTO) 0.5 K/uL (0.1-1.30); MONOCYTES % (AUTO) 10.2 % (2.0-12.0); NEUTROPHILS # (AUTO) 3.1 K/uL (1.8-8.9); NEUTROPHILS % (AUTO) 60.1 % (43.0-81.0); PLATELET COUNT (AUTO) 335 K/uL (150-450); RED BLOOD CELL COUNT(AUTO) 3.86 MIL/uL (4.0-5.2); RED CELL DISTRIBUTION WIDTH 16.6 % (11.5-15.0); WHITE BLOOD COUNT (AUTO) 5.2 K/uL (4.3-11.0)
[2024-07-11 06:47] LABS: CALCIUM, SERUM 8.9 mg/dL (8.5-10.1); CREATININE 0.7 mg/dL (0.6-1.3); POTASSIUM 3.3 mmol/L (3.5-5.1)
[2024-07-11 07:00] VITALS: BP 142/73; TEMP 97.7; O2SAT 100
[2024-07-11] MEDS: POTASSIUM CHLORIDE 20 MEQ POWDER PACKET PO ONE (09:32)
[2024-07-11 16:00] VITALS: BP 147/80; TEMP 98.1; O2SAT 98
[2024-07-11 20:00] VITALS: BP 148/80; TEMP 98.8; O2SAT 96
[2024-07-12 07:06] LABS: CALCIUM, SERUM 8.7 mg/dL (8.5-10.1); CREATININE 0.6 mg/dL (0.6-1.3); POTASSIUM 3.5 mmol/L (3.5-5.1)
[2024-07-12 08:00] VITALS: BP 153/79; TEMP 98.1; O2SAT 99
[2024-07-12 16:00] VITALS: BP 129/68; TEMP 98.8; O2SAT 97
== END 2024-07-12 19:30 | disposition home health service (06) | DRG 720 ==
LOC: ER 11:58 → TELE 17:32 → MED 17:51
PROVIDERS: ADMIT Nurse Practitioner Acute Care; ATTEND Nurse Practitioner Acute Care
DX: A41.51 Sepsis due to Escherichia coli [E. coli] (principal); E87.1 Hypo-osmolality and hyponatremia; N13.6 Pyonephrosis; Z88.2 Allergy status to sulfonamides; N20.2 Calculus of kidney with calculus of ureter; E86.1 Hypovolemia; E87.6 Hypokalemia; Z87.442 Personal history of urinary calculi; Z98.890 Other specified postprocedural states; Z16.12 Extended spectrum beta lactamase (ESBL) resistance; N10 Acute pyelonephritis
CPT/HCPCS: 36415; 71045-TC; 80048-TC; 80076-TC; 80202-TC; 81001; 82962-TC; 83605-TC; 83690-TC; 83735-TC; 84100-TC; 84484-TC; 85025-TC; 87040-TC; 87081-TC; 87086-TC; 87186-TC; 97116-TC; 97530-TC; A4223; G0378; J0696; J1885; J2185; J2270; J2405; J2543; J3370; J7030; J7050; J7060; Q9967

== ENCOUNTER 2024-12-19 16:58 | Emergency (ER) | payer MEDICAID ==
[~2024-12-19] VITALS: Ht 165.1 cm; Wt 52.2 kg
[~2024-12-19 16:58] MED LIST changes: -ACET-2605 PO; +ACET-73 PO; -CLIN300C12 PO; -IBUP-1953 PO; +IBUP-1955 PO; +METH500T6 PO; +POLY510P31 PO; -TRAM50TA2 PO
[2024-12-19] MEDS ORDERED: HYDROCODONE/APAP 5/325MG TABLET ONE (17:31)
[2024-12-19] MEDS ORDERED: IBUPROFEN 400 MG TABLET ONE (17:31)
[2024-12-19] MEDS: IBUPROFEN 400 MG TABLET PO ONE (17:36)
[2024-12-19] MEDS: HYDROCODONE/APAP 5/325MG TABLET PO ONE (17:37)
[2024-12-19] MEDS ORDERED: KETO10TA2 PO (19:12)
[2024-12-19] MEDS ORDERED: HYDR-4209 PO (19:12)
[2024-12-19 19:19] VITALS: BP 128/75; TEMP 98.5; O2SAT 98
== END 2024-12-19 19:20 | disposition home or self-care (01) ==
LOC: ER 16:58
DX: M25.562 Pain in left knee (principal); M79.662 Pain in left lower leg; R22.42 Localized swelling, mass and lump, left lower limb; Z88.2 Allergy status to sulfonamides; Z90.49 Acquired absence of other specified parts of digestive tract; Z87.42 Personal history of other diseases of the female genital tract; Z60.2 Problems related to living alone
CPT/HCPCS: 73562; 93971-TC